=== PATIENT | female | born 1980 | race Caucasian/White ===

== ENCOUNTER → 2018-01-24 10:07 | Outpatient (CLI) | payer OTHER, SELFPAY ==
--- NOTE | 2018-01-24 10:09 | MM_ITS ---
MM Dig screening mamm BI w/CAD ORDERING PHYSICIAN : Gwen Samson PATIENT AGE: 37 years GENDER: Female COMPARISON: None Baseline mammogram INDICATION: ITS.REASON: breast pain mirena Family history:. Maternal grandmother with breast cancer in her 70s. Maternal first cousin breast cancer age 25 TECHNIQUE: Standard CC and MLO images were obtained. R2 CAD reviewed. FINDINGS: Moderately dense breast tissue most evident towards upper-outer quadrant right and left breast. Mild/moderate asymmetry at upper-outer quadrant left versus right breast.. CAD computer review highlights no areas of concern. RIGHT BREAST:No areas of concern follow-up in one year adequate LEFT BREAST:The denser tissue at the deep lateral left breast on cc view seems to dissipate on MLO view and I believe most likely reflects asymmetric fibroglandular tissue most likely. . The asymmetry is fairly pronounced here in this would suggest a follow-up left mammogram 4-6 months to further confirm stability IMPRESSION: Asymmetric moderately dense breast . Asymmetric area of I believe fibroglandular tissue upper-outer quadrant left breast, which seems to dissipate on the MLO view . However suggest a follow-up left mammogram in 4-6 months to confirm stable baseline character here. BI-RADS Category: 3 Probably Benign Finding Short Term Follow-up RECOMMENDED FOLLOW-UP: 6M 6 MONTH FOLLOW-UP (A letter has been sent to the patient regarding results of the study.)
== END ==
PROVIDERS: PCP Nurse Practitioner Family; Visit Provider Nurse Practitioner Family
DX: N64.4 Mastodynia (principal); Z12.31 Encounter for screening mammogram for malignant neoplasm of breast
CPT/HCPCS: 77067

== ENCOUNTER → 2018-10-31 13:03 | Outpatient (CLI) | payer OTHER, SELFPAY ==
--- NOTE | 2018-10-31 | US_ITS ---
MM Dig mamm DX unilat LT CAD, US breast LT complete INDICATION: Follow-up abnormal mammogram, asymmetric density ORDERING PHYSICIAN: REGULO Blanco PATIENT AGE: 38 years COMPARISON: 01/24/2018 TECHNIQUE: Standard images performed along with spot compression views and left breast ultrasound FINDINGS: Average to dense fibroglandular tissue. Asymmetric areas of increased density are present in the outer and medial aspect of the left breast as well as the upper and central aspect of the left breast. These areas appear similar compared to the previous exam. There appear to compress out as expected for fibroglandular tissue. No malignant appearing microcalcifications. There is some minimal nodularity noted in the inferior aspect of the left breast on the MLO view which may be due to an area of asymmetric tissue. Left breast ultrasound: There is a 4 mm cyst at 6:00 possibly representing asymmetric density in the inferior aspect of the left breast. No malignant appearing masses IMPRESSION: Probably benign findings, scattered areas of asymmetry as described above. Recommend follow-up December 2018 to put the patient back on schedule BI-RADS Category: 3 Probably Benign Finding Short Term Follow-up RECOMMENDED FOLLOW-UP: 3M - 3 MONTH FOLLOWUP (A letter has been sent to the patient regarding results of the study.)
== END ==
PROVIDERS: PCP Physician Assistant; Visit Provider Physician Assistant
DX: R92.8 Other abnormal and inconclusive findings on diagnostic imaging of breast (principal)
CPT/HCPCS: 76641; 77065

== ENCOUNTER → 2019-01-23 16:16 | Outpatient (CLI) | payer OTHER, SELFPAY ==
[2019-01-23 17:27] LABS: Basophils # 0.1 K/mm3 (0-0.2); Basophils % 0.7 % (0.1-2.0); Eosinophils # 0.3 K/mm3 (0.0-0.4); Eosinophils % 3.4 % (0.1-12.0); Hemoglobin 13.6 g/dL (12.2-16.2); Lymphocytes # 2.8 K/mm3 (0.7-4.5); Lymphocytes % 34.1 % (10-50); Mean Corpuscular HGB Conc 33.3 g/dL (31.8-35.4); Mean Corpuscular Hemoglobin 31.5 pg (27.0-31.2); Mean Corpuscular Volume 94.6 fl (81-99); Mean Platelet Volume 8.4 fl (7.4-10.4); Monocytes # 0.3 K/mm3 (0.1-1.0); Monocytes % 3.9 % (1.7-9.3); Neutrophils # 4.8 K/mm3 (1.8-7.8); Neutrophils % 57.9 % (37.0-80.0); Platelet Count 245 K/mm3 (142-424); Red Blood Count 4.33 M/mm3 (4.20-5.40); Red Cell Distribution Width 12.6 % (11.5-17.5); White Blood Count 8.3 K/mm3 (4.8-10.8)
[2019-01-23 19:01] LABS: Alanine Aminotransferase 14 U/L (12-78); Albumin/Globulin Ratio 1.4 (1.1-1.8); Alkaline Phosphatase 42 U/L (46-116); Anion Gap 10.8 mEq/L (5-15); Aspartate Amino Transferase 12 U/L (15-37); Bilirubin,Total 0.3 mg/dL (0.2-1.0); Blood Urea Nitrogen 10 mg/dL (7-18); Calcium 9.4 mg/dL (8.5-10.1); Carbon Dioxide 29 mmol/L (21.0-32.0); Chloride 104 mmol/L (98-107); Creatinine,Serum 0.65 mg/dL (0.55-1.02); Estimated Glomerular Filt Rate 101 ml/min (>60); Free T4 (Free Thyroxine) 0.94 ng/dl (0.76-1.46); GFR (African American) 122 ML/MIN (>60); Globulin 2.8 gm/dl (1.3-3.2); Glucose 86 mg/dL (74-106); Potassium 3.8 mmoL/L (3.5-5.1); Sodium 140 mmol/L (136-145); Thyroid Stimulating Hormone 1.69 uIU/ml (0.358-3.740); Total Protein,Serum 6.8 gm/dL (6.4-8.2)
[2019-01-25 08:13] LABS: Iron 54 ug/dL (27-159); UIBC 184 ug/dL (131-425)
[2019-01-25 08:18] LABS: Iron Saturation 23 % (15-55); Vitamin B12 298 pg/mL (232-1245); Vitamin D 25 Hydroxy 19.9 ng/mL (30.0-100.0)
[2019-01-25 14:56] LABS: FSH 19.3 mIU/mL (.)
[2019-01-29 09:22] LABS: Estrogen 75 pg/mL (.)
== END ==
PROVIDERS: Visit Provider Nurse Practitioner Psychiatric/Mental Health
DX: Z00.00 Encounter for general adult medical examination without abnormal findings (principal); Z79.899 Other long term (current) drug therapy; R53.83 Other fatigue; E55.9 Vitamin D deficiency, unspecified
CPT/HCPCS: 36415; 80053; 82607; 82652; 82672; 83001; 83036; 83540; 83550; 84439; 84443; 85025

== ENCOUNTER → 2019-04-24 08:19 | Outpatient (CLI) | payer OTHER, SELFPAY ==
--- NOTE | 2019-04-24 08:20 | CA_ITS ---
APPROVED REPORT EXAM: Comprehensive 2D, Doppler, and color-flow Echocardiogram Math Instructor: Leona Abraham RT(R) Ht: 5 ft 0 in Wt: 146lbs BSA: 1.63 BP: 105/72 mmHg Indications: SOA, ABN EKG, syncope, cp, smoker, palpitations. 2D Dimensions LVOT 1.72 cm (M/F) 1.5-2.5 M-Mode Dimensions RVDd 1.88 cm (0.9-2.6) LVDd 4.61 cm (3.5-5.7) LVDs 3.55 cm (3.5-5.7) IVSd 0.66 cm (0.6-1.1) PWd 0.60 cm (0.6-1.1) EF (Teich) 46.20% FS 23.00% EDV (Teich) 97.80 mL ESV (Teich) 52.60 mL LV Diastology E/A Ratio 1.22 Mitral Valve MV A Velocity 74.00 (40-130 cm/s) Left Ventricle Left atrium is normal size, left ventricle is normal size, there is no concentric left ventricular hypertrophy, visually estimated ejection fraction 55% with no regional wall motion abnormality. Right Ventricle Right atrium and right ventricular normal size and contractility. Aortic Valve Aortic valve is grossly normal, there is no aortic stenosis or aortic insufficiency. Mitral Valve Mitral valve is grossly normal, there is no mitral stenosis, there is mild mitral regurgitation. Tricuspid Valve Tricuspid valve is grossly normal, there is mild tricuspid regurgitation. Tricuspid regurgitation jet velocity is inadequate for calculation of the right ventricular systolic pressure. Pulmonic Valve Pulmonic valve is poorly visualized. Great Vessels Aortic root is normal size. Pericardium No significant pericardial effusion noted. Conclusion 1. Normal left ventricular size, preserved left ventricular systolic function, visually estimated ejection fraction 55% with no regional wall motion abnormality, diastolic parameters are within normal range. 2. Mild mitral and tricuspid regurgitation. 3. No significant pericardial effusion noted. Electronically signed by : Syed Junior, 04/25/2019 14:41:05
--- NOTE | 2019-04-24 08:20 | CA_ITS ---
APPROVED REPORT Exam: Exercise Treadmill Technologist: Deborah Odell Ht: 5 ft 0 in Wt: 157 lbs BSA: 1.68 m2 HR: 92 bpm BP: 116/59 mmHg Indications: Shortness of Breath Medical History Medications: Prozac,,,,, Suboxine,,,,, Stress Test Details Test: Alen HR Resting HR: 98 bpm Max Heart Rate (APMHR): 180 bpm Max HR Achieved: 158 bpm Target HR (85% APMHR): 153 bpm % of APMHR: 87 Recovery HR: 93 bpm BP Resting BP: 116.0/59.0 mmHg Max BP: 134.0/86.0 mmHg Recovery BP: 129.0/69.0 mmHg ECG Clinical Exercise duration: 06:40 min Highest Stage Achieved: Exercise capacity: 7.0 METs Stress ECG Conclusion Resting ECG: Sinus Rhythm with PVC Alen protocol completed. Patient exercised 06:40. Test stopped due to shortness of breath. Symptoms: Shortness of breath at peak exercise. Resolved in recovery. No chest pain. Arrhythmias/Ectopy: Occasional PVC ST-T Changes: Less than 1.[address] depression. Conclusion: GXT only. Appropriate blood pressure response. Average exercise capacity. Normal GXT. Test Summary REST . . . . . . . Sitting REST 09:03 0.0 0.0 98 . 116/ 59 . . Stage 1 01:00 10.0 1.7 108 . . . . Stage 1 02:00 10.0 1.7 120 . . . . Stage 1 03:00 10.0 1.7 126 . 114/ 66 . . Stage 2 01:00 12.0 2.5 131 . . . . Stage 2 02:00 12.0 2.5 141 . . . . Stage 2 03:00 12.0 2.5 146 . 122/ 68 . . Stage 3 00:40 14.0 3.4 157 . . . Stop exercise at 06:40 RECOVERY 01:00 0.0 0.0 130 . 128/ 68 . . RECOVERY 02:00 0.0 0.0 108 . 128/ 68 . . RECOVERY 03:00 0.0 0.0 100 . 134/ 86 . . RECOVERY 04:00 0.0 0.0 93 . 134/ 86 . . RECOVERY 04:21 0.0 0.0 97 . 129/ 69 . . Electronically signed by : Syed Junior, 04/25/2019 16:00:04
== END ==
PROVIDERS: PCP Physician Assistant; Visit Provider Nurse Practitioner Family
DX: R06.02 Shortness of breath (principal); R07.9 Chest pain, unspecified; R94.31 Abnormal electrocardiogram [ECG] [EKG]
CPT/HCPCS: 93017; 93306

== ENCOUNTER 2020-10-24 13:25 | Emergency (ER) | payer OTHER, SELFPAY ==
[2020-10-24 13:51] VITALS: BP 133/84; PULSE 91; RESP 20; TEMP 36.9; O2SAT 98; BMI 29.7
--- NOTE | 2020-10-24 13:58 | XR_ITS ---
PROCEDURE INFORMATION: Exam: XR Right Foot Exam date and time: 10/24/2020 1:58 PM Age: 40 years old Clinical indication: Pain; Foot; Right TECHNIQUE: Imaging protocol: XR Right foot. Views: 3 or more views. COMPARISON: No relevant prior studies available. FINDINGS: Bones/joints: There is no evidence of acute fracture. There is no evidence of joint malalignment or dislocation. Soft tissues: There are no soft tissue masses or fluid collections. IMPRESSION: 1. No evidence of acute fracture. 2. No evidence of acute dislocation.
--- NOTE | 2020-10-24 13:58 | XR_ITS ---
PROCEDURE INFORMATION: Exam: XR Left Knee Exam date and time: 10/24/2020 1:58 PM Age: 40 years old Clinical indication: Pain; Knee; Left TECHNIQUE: Imaging protocol: XR Left knee. Views: 3 views. COMPARISON: CR FTL3 FOOT-LT-3 VIEWS 05/28/2014 9:41 PM FINDINGS: Bones/joints: There is no evidence of acute fracture. There is no evidence of joint malalignment or dislocation. Soft tissues: There are no soft tissue masses or fluid collections. IMPRESSION: 1. No evidence of acute fracture. 2. No evidence of acute dislocation.
--- NOTE | 2020-10-24 14:56 | HMH.EDUTC ---
[facility] [place] Clinical Impression: Right foot pain Left knee pain Qualifiers: Chronicity: acute Qualified Code(s): M25.562 - Pain in left knee Disposition: Home, Self-Care Condition on Discharge: Good Instructions: DI for Foot Pain, DI for Knee Pain Additional Instructions: Rest the extremity, apply ice for 15 minutes as tolerated three or four times per day, Elevate the extremity as tolerated while you are resting. Take the medications as directed. Follow up with Dr. Bill (orthopedics). I put in a referral but you need to call his office and schedule an appointment. Follow up with your regular doctor. GO TO THE ER FOR ANY WORSENING SYMPTOMS Prescriptions: predniSONE [Prednisone 20mg Tab] 20 mg PO BID 4 Days #8 tab Transmission Status: Received by [id number] Referrals: Garfield Dasilva MD [Primary Care Provider] - Jann Bill MD [Staff Physician] - Time of Disposition: 15:02 Medical Decision Making - Medical Records Medical records reviewed: No: I reviewed the patient's medical records. - Dipesh Inquiry Pt receiving controlled substance: No Vital Signs: 10/24/20 13:51 10/24/20 15:23 Temperature 98.5 F 98 F Temperature Source Oral Pulse Rate 83 Pulse Rate [Left] 91 H Respiratory Rate 20 20 Blood Pressure 127/80 Blood Pressure [Right Arm] 133/84 Blood Pressure Mean [Right Arm] 100 02 Sat by Pulse Oximetry 98 [facility] [place] - General Stated complaint: Lt knee pain, no ao Time Seen by Provider: 10/24/20 14:00 Mode of Arrival: Ambulatory Source of Information: Patient Limitations: No Limitations Description of Symptoms (Recalled from Triage Doc. by RN): pt c/o of L knee swelling and pain 11/03. pt also c/o pain on her R foot along the inside of it that palmer and spasms. She states this occurs off and on and lasts about 5m out of an hr. pt states she thinks its gout. no hx of gout. HEENT Symptoms (Recalled from RN notes): No Resp Symptoms (Recalled from RN notes): No Skin Symptoms (Recalled from RN notes): No MS Symptoms (Recalled from RN notes): Yes (L knee pain and R foot pain) Functional Status (Recalled from RN notes): na - History of Present Illness Provider Complaint: She c/o 2 days of worsening left knee pain. She denies any injury. She states that bending her knee makes the pain worse. She states that it has been swollen also. She also has had right foot pain for the past week. She denies any injury related to that also. - Related Data Home Medications Medication Instructions Recorded Confirmed buprenorphine 8 mg-naloxone 2 mg 1 film SUBLINGUAL QDAY 04/19/17 04/23/20 sublingual film Previous Rx's Medication Instructions Recorded omeprazole 40 mg capsule,delayed 40 mg PO QDAY #30 cap 04/24/20 release predniSONE [Prednisone 20mg 20 mg PO BID 4 Days #8 tab 10/24/20 Tab] Allergies Allergy/AdvReac Type Severity Reaction Status Date / Time codeine [CODEINE] Allergy Unknown Verified 04/24/20 09:08 Penicillins [PENICILLINS] Allergy Unknown NA-NAUSEA/V Verified 04/24/20 09:08 OMITING Sulfa (Sulfonamide Allergy Unknown NA-NAUSEA/V Verified 04/24/20 09:08 Antibiotics) OMITING [SULFA (SULFONAMIDE ANTIBIOTICS)] - Worker's Comp Is this a Worker's Comp case?: No [facility] History - Hepatitis A Screen Drug use history?: No High risk sexual behaviors?: No History of sexually transmitted infection?: No Currently employed?: No Childcare worker?: No Do you have indoor plumbing?: Yes Do you have electricity?: Yes Attestation statement:: This patient has been screened for Hepatitis A risk factors. I have reviewed the patient's past medical history: Yes Medical History: Reports:: Anxiety, Depression, Gastroesophageal Reflux Disease(GERD) Denies:: Cancer, Diabetes Mellitus Type 1, Diabetes Mellitus Type 2, MRSA Other Surgeries: Yes: Cholecystectomy, Other Amputation: No Fractures: Yes (LEFT PINKY FINGER
[2020-10-24 15:23] VITALS: BP 127/80; PULSE 83; RESP 20; TEMP 36.6
== END 2020-10-24 15:23 | disposition home or self-care (01) ==
PROVIDERS: Emergency Provider Nurse Practitioner Family; PCP Emergency Medicine
DX: M79.671 Pain in right foot (principal); M25.562 Pain in left knee; F41.8 Other specified anxiety disorders; K21.9 Gastro-esophageal reflux disease without esophagitis; F17.210 Nicotine dependence, cigarettes, uncomplicated; Z79.899 Other long term (current) drug therapy
CPT/HCPCS: 73562; 73630; 99202; G0463

== ENCOUNTER → 2020-12-09 15:49 | Outpatient (CLI) | payer OTHER, SELFPAY ==
[2020-12-09 16:40] LABS: Basophils # 0.1 K/mm3 (0-0.2); Basophils % 0.6 % (0.1-2.0); Eosinophils # 0.3 K/mm3 (0.0-0.4); Eosinophils % 2.4 % (0.1-12.0); Hematocrit 41.6 % (37.0-47.0); Lymphocytes # 3.1 K/mm3 (0.7-4.5); Lymphocytes % 29.5 % (10-50); Mean Corpuscular HGB Conc 33.6 g/dL (31.8-35.4); Mean Corpuscular Hemoglobin 31.4 pg (27.0-31.2); Mean Corpuscular Volume 93.2 fl (81-99); Mean Platelet Volume 7.8 fl (7.4-10.4); Monocytes # 0.4 K/mm3 (0.1-1.0); Monocytes % 3.8 % (1.7-9.3); Neutrophils # 6.6 K/mm3 (1.8-7.8); Neutrophils % 63.7 % (37.0-80.0); Platelet Count 241 K/mm3 (142-424); Red Blood Count 4.47 M/mm3 (4.20-5.40); Red Cell Distribution Width 12.1 % (11.5-17.5); White Blood Count 10.4 K/mm3 (4.8-10.8)
[2020-12-09 17:22] LABS: Erythrocyte Sedimentation Rate 9 mm/hr (0-20)
[2020-12-09 17:35] LABS: Alanine Aminotransferase 15 U/L (12-78); Albumin Level 4.4 g/dl (3.5-5.0); Alkaline Phosphatase 41 U/L (38-126); Aspartate Amino Transferase 20 U/L (14-36); Bilirubin,Indirect 0.2 mg/dL (0.0-0.9); Bilirubin,Total 0.2 mg/dl (0.2-1.3); Bilirubin,Unconjugated 0.2 mg/dL (0.0-1.1); Chol/HDL Ratio 4.6 (1-3.5); Cholesterol 201 mg/dl (140-200); HDL Cholesterol 44 mg/dl (40-60); Total Protein,Serum 6.8 g/dl (6.3-8.2); Triglycerides 231 mg/dl (30-150); VLDL Cholesterol 46 mg/dL (0-40)
[2020-12-09 17:36] LABS: Alanine Aminotransferase 16 U/L (12-78); Albumin Level 4.4 g/dl (3.5-5.0); Albumin/Globulin Ratio 1.8 (1.1-1.8); Alkaline Phosphatase 41 U/L (38-126); Aspartate Amino Transferase 20 U/L (14-36); Bilirubin,Total 0.3 mg/dl (0.2-1.3); Blood Urea Nitrogen 9 mg/dl (7-17); Calcium 9.5 mg/dl (8.4-10.2); Carbon Dioxide 27 mmol/L (22.0-30.0); Chloride 102 mmol/L (98-107); Estimated Glomerular Filt Rate 92 ml/min (>60); GFR (African American) 111 ML/MIN (>60); Globulin 2.4 g/dL (1.3-3.2); Glucose 103 mg/dl (74-100); Sodium 141 mmol/L (136-145); Total Protein,Serum 6.8 g/dl (6.3-8.2); Uric Acid 4.2 mg/dl (2.5-6.2)
[2020-12-09 17:41] LABS: C-Reactive Protein 0.9 mg/L (0-4)
[2020-12-09 17:46] LABS: Direct LDL Cholesterol 106.75 mg/dL (100-129)
[2020-12-09 17:52] LABS: Free T4 (Free Thyroxine) 0.94 ng/dl (0.78-2.19)
[2020-12-09 18:07] LABS: Thyroid Stimulating Hormone 2.21 uIU/mL (0.465-4.68)
== END ==
PROVIDERS: Physician Assistant; Visit Provider Physician Assistant
DX: R06.02 Shortness of breath (principal); R07.89 Other chest pain; M79.671 Pain in right foot; R35.0 Frequency of micturition; B96.20 Unspecified Escherichia coli [E. coli] as the cause of diseases classified elsewhere
CPT/HCPCS: 36415; 80053; 80061; 80076; 84439; 84443; 84550; 85025; 85651; 86140; 87086; 87088; 87186

== ENCOUNTER 2020-12-20 09:46 | Emergency (ER) | payer OTHER, SELFPAY ==
[2020-12-20 09:50] VITALS: BP 108/80; PULSE 97; RESP 20; TEMP 37.1; O2SAT 98; BMI 30.4
[2020-12-20 10:20] LABS: Apearance,Urine Cloudy (Clear); Bilirubin,Urine Negative (Negative); Blood, Urine Negative (Negative); Color,Urine Dark Yellow (Yellow); Glucose,Urine (UA) Negative (Negative); Ketones,Urine Negative (Negative); PH,Urine 7.5 (5.0-8.5); Protein,Urine Negative (Negative); UTC Leukocyte Esterase,Urine 1+ (Negative); UTC Nitrate,Urine Negative (Negative); Urobilinogen,Urine 0.2 EU/dl (0.2)
--- NOTE | 2020-12-20 10:36 | HMH.EDUTC ---
[facility] – [place], [place] Disposition Clinical Impression: UTI (urinary tract infection) Qualifiers: Urinary tract infection type: site unspecified Hematuria presence: with hematuria Qualified Code(s): N39.0 - Urinary tract infection, site not specified Disposition: Home, Self-Care Condition on Discharge: Good Instructions: DI for Urinary Tract Infection (UTI) Additional Instructions: Drink plenty of fluids. Take tylenol or ibuprofen for pain or fever. Take the medications as directed. Follow up with your regular doctor. GO TO THE ER FOR ANY WORSENING SYMPTOMS The pyridium will make your urine turn orange, this is an expected side effect. It will stain your clothes if it comes into contact with them. Don't take the Azo you are on at home and the pyridium that we prescribed. These are essentially the same medicines and both together would not be necessary and could cause you GI upset and other stuff. Stop the antbiotic that you are on now. Start the new one (cefdinir). Follow up with Khalida. We cultured your urine today, but that will take 3 days to complete. I put in a referral to a urologist that comes to this hospital. Please call Dr. Coffey's office and make yourself an appointment. Even if you're getting better it would be good for you to be seen there because you've had this much trouble with this infection this time. His office number will be on this paperwork. Prescriptions: Cefdinir [Omnicef 300mg Capsule] 300 mg PO BID #20 cap Transmission Status: Re[facility] by [facility] Phenazopyridine HCl [Pyridium 200mg Tablet] 200 pow PO TID #6 tab Transmission Status: Received by [facility] Ondansetron [Zofran 4mg ODT] 4 mg PO DAILYP PRN #12 tab PRN Reason: Nausea Transmission Status: Received by [facility] Referrals: Khalida Moran PA [Primary Care Provider] - Aldo Coffey MD [Staff Physician] - Forms: Work/School Release Time of Disposition: 10:44 Medical Decision Making - Medical Records Medical records reviewed: No: I reviewed the patient's medical records. - Dipesh Inquiry Pt receiving controlled substance: No Vital Signs: 12/20/20 09:50 12/20/20 10:50 Temperature 98.7 F 98.7 F Temperature Source Oral Pulse Rate 97 H Pulse Rate [Right Brachial] 97 H Respiratory Rate 20 20 Blood Pressure 108/80 L Blood Pressure [Right Arm] 108/80 L Blood Pressure Mean [Right Arm] 89 Blood Pressure Source [Right Arm] Automatic Cuff Blood Pressure Position [Right Arm] Sitting 02 Sat by Pulse Oximetry 98 Oxygen Delivery Method Room Air - Lab Data Lab results reviewed: Yes: I reviewed the patient's lab results. Lab Results 12/20/20 10:14: Urine Color Dark yellow, Urine Appearance Cloudy, Urine pH 7.5, Ur Specific [place] 1.020, Urine Protein Negative, Urine Glucose (UA) Negative, Urine Ketones Negative, Urine Blood Negative, Urine Nitrate Negative, Urine Bilirubin Negative, Urine Urobilinogen 0.2, Ur Leukocyte Esterase 1+ A Orders (Tests/Meds): ED MEDICATIONS Discontinued Medications Generic Name Dose Route Start Last Admin Trade Name Freq PRN Reason Stop Dose Admin Ceftriaxone Sodium 1 gm 12/20/20 10:40 12/20/20 10:45 Ceftriaxone 1gm Vial IM 12/20/20 10:41 1 gm ONCE ONE Administration Lidocaine HCl 0 ml 12/20/20 10:40 12/20/20 10:45 Lidocaine 1% 5ml Pf Vial IM 12/20/20 10:41 2.1 ml ONCE ONE Administration ORDERS Category Date Time Status Urine Culture Stat Micro 12/20/20 09:57 Received [facility] – [place], [place] HPI - General Stated complaint: possible kidney infection Time Seen by Provider: 12/20/20 10:36 Mode of Arrival: Ambulatory Source of Information: Patient Limitations: No Limitations Description of Symptoms (Recalled from Triage Doc. by RN): PATIENT STATES SHE HAS HAD A UTI X 3 WEEKS. STATES SHE HAS BEEN TREATED WITH 2 ROUNDS OF ANTIBIOTICS BUT IS NOT BETTER HEENT Symptoms (Recalled fro
[2020-12-20 10:50] VITALS: BP 108/80; PULSE 97; RESP 20; TEMP 37.1; O2SAT 98
== END 2020-12-20 10:56 | disposition home or self-care (01) ==
PROVIDERS: Emergency Provider Nurse Practitioner Family; PCP Physician Assistant
DX: N39.0 Urinary tract infection, site not specified (principal); Z88.0 Allergy status to penicillin; Z88.6 Allergy status to analgesic agent; Z88.2 Allergy status to sulfonamides; Z72.0 Tobacco use; F41.9 Anxiety disorder, unspecified; F32.9 Major depressive disorder, single episode, unspecified; K21.9 Gastro-esophageal reflux disease without esophagitis; F11.11 Opioid abuse, in remission
CPT/HCPCS: 81003; 87086; 96372; 99202; G0463

== ENCOUNTER → 2021-04-16 17:50 | Outpatient (CLI) | payer OTHER, SELFPAY | PROVIDERS: Visit Provider Nurse Practitioner Family | DX: N39.0 Urinary tract infection, site not specified (principal); B96.20 Unspecified Escherichia coli [E. coli] as the cause of diseases classified elsewhere | CPT/HCPCS: 87086; 87088; 87186 ==

== ENCOUNTER → 2021-08-26 14:23 | Outpatient (CLI) | payer OTHER, SELFPAY ==
[2021-08-26 13:34] LABS: Basophils # 0.2 K/mm3 (0-0.2); Basophils % 1.5 % (0.1-2.0); Eosinophils # 0.3 K/mm3 (0.0-0.4); Eosinophils % 3.1 % (0.1-12.0); Hematocrit 40.1 % (37.0-47.0); Hemoglobin 13.7 g/dL (12.2-16.2); Lymphocytes # 2.3 K/mm3 (0.7-4.5); Lymphocytes % 23.4 % (10-50); Mean Corpuscular HGB Conc 34.2 g/dL (31.8-35.4); Mean Corpuscular Hemoglobin 32.4 pg (27.0-31.2); Mean Corpuscular Volume 94.9 fl (81-99); Mean Platelet Volume 9.6 fl (7.4-10.4); Monocytes # 0.4 K/mm3 (0.1-1.0); Monocytes % 3.6 % (1.7-9.3); Neutrophils # 6.6 K/mm3 (1.8-7.8); Neutrophils % 68.3 % (37.0-80.0); Platelet Count 254 K/mm3 (142-424); Red Blood Count 4.23 M/mm3 (4.20-5.40); Red Cell Distribution Width 13.1 % (11.5-17.5); White Blood Count 9.7 K/mm3 (4.8-10.8)
[2021-08-26 13:35] LABS: Alanine Aminotransferase 15 U/L (12-78); Albumin/Globulin Ratio 1.7 (1.1-1.8); Alkaline Phosphatase 56 U/L (38-126); Anion Gap 8.2 mEq/L (5-15); Aspartate Amino Transferase 23 U/L (14-36); Blood Urea Nitrogen 8 mg/dl (7-17); Calcium 8.8 mg/dl (8.4-10.2); Carbon Dioxide 25 mmol/L (22.0-30.0); Chloride 108 mmol/L (98-107); Chol/HDL Ratio 5.3 (1-3.5); Cholesterol 165 mg/dl (140-200); Estimated Glomerular Filt Rate 110 ml/min (>60); GFR (African American) 133 ML/MIN (>60); Globulin 2.3 g/dL (1.3-3.2); Glucose 107 mg/dl (74-100); HDL Cholesterol 31 mg/dl (40-60); Magnesium 1.9 mg/dl (1.6-2.3); Potassium 4.2 mmoL/L (3.5-5.1); Sodium 137 mmol/L (136-145); Total Protein,Serum 6.3 g/dl (6.3-8.2); Triglycerides 245 mg/dl (30-150); VLDL Cholesterol 49 mg/dL (0-40)
[2021-08-26 13:46] LABS: Direct LDL Cholesterol 80.83 mg/dL (100-129)
[2021-08-26 13:47] LABS: Bilirubin,Total < 0.1 mg/dl (0.2-1.3)
[2021-08-26 13:53] LABS: 25-OH Vitamin D, Total 27.4 ng/mL (30-100)
[2021-08-26 14:06] LABS: Thyroid Stimulating Hormone 2.29 uIU/mL (0.465-4.68)
[2021-08-26 14:25] LABS: Vitamin B12 332 pg/mL (239-931)
[2021-08-26 15:40] LABS: Ferritin 61.9 ng/ml (6.24-137)
[2021-08-26 16:04] LABS: Hemoglobin A1C 5.2 % (4.0-6.0)
== END ==
PROVIDERS: PCP Physician Assistant; Visit Provider Physician Assistant
DX: R09.89 Other specified symptoms and signs involving the circulatory and respiratory systems (principal); R53.83 Other fatigue; M62.838 Other muscle spasm; M79.606 Pain in leg, unspecified; R73.09 Other abnormal glucose; E55.9 Vitamin D deficiency, unspecified
CPT/HCPCS: 80053; 80061; 82306; 82607; 82728; 83036; 83735; 84443; 85025

== ENCOUNTER → 2021-09-15 09:29 | Outpatient (CLI) | payer OTHER, SELFPAY ==
--- NOTE | 2021-09-15 09:30 | CA_ITS ---
APPROVED REPORT Exam: Exercise Treadmill Technologist: Kasandra Aleman, Ht: 5 ft 0 in Wt: 163 lbs BSA: 1.71 m2 HR: 69 bpm BP: 124/70 mmHg Medical History Medications: Suboxone,,,,, Prozac,,,,, Stress Test Details Test: Alen HR Resting HR: 72 bpm Max Heart Rate (APMHR): 178.510630 bpm Max HR Achieved: 147 bpm Target HR (85% APMHR): 151.432260 bpm % of APMHR: 82.58 Recovery HR: 75 bpm BP Resting BP: 119/71 mmHg Max BP: 144/76 mmHg Recovery BP: 118.0/72.0 mmHg ECG Resting ECG: NSR, normal Clinical Exercise duration: 06:52 min Highest Stage Achieved: III Exercise capacity: 10.1 METs Stress ECG Conclusion Max HR: 147 % of PM: 83% Max BP: 144/76 METs: 10.1 Test stopped due to: SOA, Fatigue Symptoms: SOA, No CP. Arrhythmias/Ectopy: Rare PVC. ST-T Changes: Within normal ST response to exercise. Conclusion: Normal GXT to HR achieved. GXT only (no imaging) Test Summary REST . . . . . . . Sitting REST . . . . . . . Standing REST 03:05 0.0 0.0 72 . 119/ 71 . . Stage 1 01:00 10.0 1.7 106 . . . . Stage 1 02:00 10.0 1.7 117 . . . . Stage 1 03:00 10.0 1.7 113 . 126/ 78 . . Stage 2 01:00 12.0 2.5 128 . . . . Stage 2 02:00 12.0 2.5 132 . . . . Stage 2 03:00 12.0 2.5 131 . 144/ 76 . . Stage 3 00:52 14.0 3.4 146 . . . Stop exercise at 06:52 RECOVERY 01:00 0.0 0.0 104 . . . . RECOVERY 02:00 0.0 0.0 83 . . . . RECOVERY 03:00 0.0 0.0 80 . 123/ 72 . . RECOVERY 04:00 0.0 0.0 80 . 123/ 72 . . RECOVERY 05:00 0.0 0.0 78 . 118/ 72 . . RECOVERY 05:16 0.0 0.0 78 . 118/ 72 . . Electronically signed by : Leonardo Bartlett MD 09/15/2021 14:39:50
--- NOTE | 2021-09-15 09:30 | CA_ITS ---
APPROVED REPORT EXAM: Comprehensive 2D, Doppler, and color-flow Echocardiogram Expenditure Requisition Clerk: Jocelynn Grimaldo, RCS, RVS Ht: 5 ft 0 in Wt: 163lbs BSA: 1.71 BP: 120/78 mmHg Indications: CP,GERD, Smoker 2D Dimensions Aortic Root 2.57 cm LA Volume 57.60 mL Left Atrium 2.33 cm LA Volume Index 33.70 mL/m2 (M/F) 16-34 LVOT 2.02 cm (M/F) 1.5-2.5 M-Mode Dimensions RVDd 2.11 cm (0.9-2.6) LA Diam 2.46 cm (1.9-4.0) LVDd 4.70 cm (3.5-5.7) Ao Diam 2.66 cm (2.0-3.7) LVDs 3.39 cm (3.5-5.7) IVSd 0.84 cm (0.6-1.1) PWd 0.87 cm (0.6-1.1) EF (Teich) 54.00% EPSs 0.47 cm FS 27.90% EDV (Teich) 102.40 mL TAPSE 2.26 (<1.7) ESV (Teich) 47.10 mL LV Diastology E Decel Time 173.00 (160-240 msec) E/A Ratio 1.28 MED E' 13.30 (< 7 cm/sec) MED A' 10.30 cm/s E'/MED E' Ratio 6.62 (>14) LAT E' 9.70 (<10 cm/sec) LAT A' 8.40 cm/s E/LAT E' Ratio 9.07 (>14) Aortic Valve LVOT Max 97.00 (70-110 cm/s) LVOT VTI 21.27 cm AoV Peak Berto. 124.00 (50-130 cm/s) AO Peak GR. 6.20 mmHg AO Mean GR. 3.20 (<5 mmHg) AO VTI 26.87 (18-25 cm) JAMEL (VTI) 2.54 (2.5-4.5 cm2) Mitral Valve MV A Velocity 69.00 (40-130 cm/s) E/A Ratio 1.28 MV Decel. Time 173.00 (160-240 ms) MV Mean Gr. 1.40 (<2mmHg) MV PHT 50.00 ms Pulmonary Valve PV Peak Velocity 82.00 (50-150 cm/s) Tricuspid Valve TR P. Velocity 213.00 cm/s RAP Estimate 5.00 mmHg RVSP 23.20 mmHg Left Ventricle Minimal size, left ventricle normal size, there is no concentric left ventricular hypertrophy, estimated ejection fraction 55% with no regional wall motion abnormality, diastolic parameters are within normal range. Right Ventricle Right atrium and right ventricle are normal size and contractility. Aortic Valve Aortic valve is grossly normal there is no aortic stenosis or aortic insufficiency. Mitral Valve Mitral valve is grossly normal, there is trace mitral regurgitation. Tricuspid Valve Tricuspid grossly normal, there is trace tricuspid regurgitation, tricuspid regurgitation jet velocity is inadequate for calculation of the right ventricular systolic pressure. Pulmonic Valve Pulmonic valve is poorly visualized. Great Vessels Aortic root is normal size. Inferior vena cava normal 7 normal inspiratory collapse. Pericardium No significant pericardial effusion noted. Conclusion 1. Normal left ventricular size preserved left ventricular systolic function, estimated ejection fraction 55% with no regional wall motion abnormality, diastolic parameters are within normal range. 2. Trace mitral and tricuspid regurgitation. 3. No significant pericardial effusion noted. 4. Inferior vena cava normal size with normal inspiratory collapse. Electronically signed by : Syed Junior MD 09/15/2021 19:22:18
== END ==
PROVIDERS: PCP Physician Assistant; Visit Provider Physician Assistant
DX: R07.9 Chest pain, unspecified (principal)
CPT/HCPCS: 93017; 93306

== ENCOUNTER 2021-12-19 11:18 | Emergency (ER) | payer OTHER, SELFPAY ==
[2021-12-19 11:19] VITALS: BP 161/80; PULSE 82; RESP 18; TEMP 36.8; O2SAT 100; BMI 30.7
[2021-12-19 11:30] VITALS: BP 151/107; PULSE 81; RESP 20; O2SAT 100
[2021-12-19 12:00] VITALS: BP 125/85; PULSE 95; RESP 20; O2SAT 98
[2021-12-19 12:01] LABS: Basophils # 0.1 K/mm3 (0-0.2); Basophils % 1.2 % (0.1-2.0); Eosinophils # 0.3 K/mm3 (0.0-0.4); Eosinophils % 2.9 % (0.1-12.0); Hematocrit 44.1 % (37.0-47.0); Hemoglobin 14.1 g/dL (12.2-16.2); Lymphocytes # 2.1 K/mm3 (0.7-4.5); Lymphocytes % 21.8 % (10-50); Mean Corpuscular Hemoglobin 31.4 pg (27.0-31.2); Mean Corpuscular Volume 98.1 fl (81-99); Mean Platelet Volume 8.2 fl (7.4-10.4); Monocytes # 0.5 K/mm3 (0.1-1.0); Monocytes % 4.9 % (1.7-9.3); Neutrophils # 6.6 K/mm3 (1.8-7.8); Neutrophils % 69.3 % (37.0-80.0); Platelet Count 265 K/mm3 (142-424); Red Cell Distribution Width 12.9 % (11.5-17.5); White Blood Count 9.5 K/mm3 (4.8-10.8)
[2021-12-19 12:03] LABS: Chloride 102 mmol/L (98-107)
[2021-12-19 12:04] LABS: Potassium 4.5 mmoL/L (3.5-5.1); Sodium 141 mmol/L (136-145)
[2021-12-19 12:06] LABS: Alanine Aminotransferase 15 U/L (12-78); Alkaline Phosphatase 55 U/L (38-126); Aspartate Amino Transferase 24 U/L (14-36); Blood Urea Nitrogen 11 mg/dl (7-17); Creatinine Clearance Estimated 136 mL/min (50-200); Estimated Glomerular Filt Rate 109 ml/min (>60); GFR (African American) 132 ML/MIN (>60)
[2021-12-19 12:07] LABS: Albumin Level 4.5 g/dl (3.5-5.0); Albumin/Globulin Ratio 1.9 (1.1-1.8); Anion Gap 13.5 mEq/L (5-15); Bilirubin,Total < 0.1 mg/dl (0.2-1.3); Calcium 9.4 mg/dl (8.4-10.2); Carbon Dioxide 30 mmol/L (22.0-30.0); Globulin 2.4 g/dL (1.3-3.2); Glucose 109 mg/dl (74-100); Total Protein,Serum 6.9 g/dl (6.3-8.2)
[2021-12-19 12:30] VITALS: BP 126/68; PULSE 109; RESP 18; O2SAT 100
--- NOTE | 2021-12-19 12:35 | HMH.EDGENADL ---
Discharge Plan Disposition Patient Disposition: Home, Self-Care Condition: Good Prescriptions Prescriptions: No Action isosorbide mononitrate 30 mg tablet extended release 24 hr 30 mg PO DAILY Qty: 30 2RF buprenorphine-naloxone 8-2 mg tablet, sublingual 2 tab sublingual Label Comments: DISSOLVE 2 TABLETS UNDER THE TONGUE EVERY DAY ergocalciferol (vitamin D2) 1,250 mcg (50,000 unit) capsule 1,250 mcg PO WEEKLY Qty: 14 3RF cholecalciferol (vitamin D3) 25 mcg (1,000 unit) capsule 25 mcg PO DAILY Qty: 30 2RF cyanocobalamin (vitamin B-12) 5,000 mcg tablet,disintegrating 5,000 mcg PO DAILY Qty: 30 0RF fluoxetine [Prozac] 40 mg capsule 40 mg PO DAILY Qty: 30 1RF phentermine [Adipex-P] 37.5 mg tablet 37.5 mg PO DAILY Qty: 30 0RF Rx Instructions: must administer 30 minutes before or 1-2 hours after breakfast Referrals Follow up/Referrals: David Be MD [Staff Physician] - See instructions Khalida Moran PA [Primary Care Provider] - See instructions Activity Restrictions/Add. Instructions Additional Instructions/Restrictions: Avoid ibuprofen, aspirin, Aleve, and other anti-inflammatories. Follow-up with general surgeon, Dr. Be, or primary care provider to arrange colonoscopy. Return to the emergency department if worsening bleeding, abdominal pain, fever, vomiting, or vomiting of blood. Clinical Impressions Clinical Impression: Bright red rectal bleeding Instructions Patient Instructions: DI for Rectal Bleeding Discharge ED Provider: Julian Chew General Adult HPI General Chief complaint: GI Bleed Stated complaint: GI Bleed Time Seen by Provider: 12/19/21 12:20 Mode of Arrival: Ambulatory Source of Information: Patient Limitations: No Limitations Description of Symptoms (Recalled from ER Triage Doc. by RN): Pt states that she has had bright red blood in her stool x1 month. C/O intermittent left side pain. Reports sister of colon cancer a couple months ago. History of Present Illness HPI narrative: 1 month history of intermittent bright red rectal bleeding. The bleeding is to the extent that she will turn the toilet water red and wiped away clots with toilet paper. Initially occurred for about 2 weeks but then seemed to resolve. Over the past couple of days it has come back. She has had 3 episodes over the past 24 hours. She states that she has a prior history of hemorrhoids, but has never bled this heavily. She had a colonoscopy at the age of 16. She has some slight pain in her left lateral flank, has a burning discomfort in her rectal area. No vomiting, no hematemesis. She is not on any blood thinners. She takes ibuprofen about 3 times a week. Related Data Home Medications Medication Instructions Recorded Confirmed buprenorphine 8 mg-naloxone 2 mg 2 tab sublingual 11/17/21 11/17/21 sublingual tablet Previous Rx's Medication Instructions Recorded isosorbide mononitrate 30 mg 30 mg PO DAILY #30 tabs 08/26/21 tablet,extended release 24 hr cholecalciferol (vitamin D3) 25 25 mcg PO DAILY #30 caps 08/30/21 mcg (1,000 unit) capsule cyanocobalamin (vitamin B-12) 5,000 mcg PO DAILY #30 tabs 08/30/21 5,000 mcg disintegrating tablet ergocalciferol (vitamin D2) 1,250 1,250 mcg PO WEEKLY #14 caps 08/30/21 mcg (50,000 unit) capsule fluoxetine 40 mg capsule (Prozac) 40 mg PO DAILY #30 caps 09/14/21 phentermine 37.5 mg tablet 37.5 mg PO DAILY #30 tabs 12/15/21 (Adipex-P) Allergies Allergy/AdvReac Type Severity Reaction Status Date / Time codeine [CODEINE] Allergy Unknown Verified 11/17/21 14:35 Penicillins [PENICILLINS] Allergy Unknown NA-NAUSEA/V Verified 11/17/21 14:35 OMITING Sulfa (Sulfonamide Allergy Unknown NA-NAUSEA/V Verified 11/17/21 14:35 Antibiotics) OMITING [SULFA (SULFONAMIDE ANTIBIOTICS)] PFSH PFSH Social History Smoking Status: Current every day smoker tobacco type: cigar
[2021-12-19 12:55] VITALS: BP 124/76; PULSE 76; RESP 16; TEMP 36.7; O2SAT 98
[2021-12-19 13:09] LABS: Occult Blood,Stool Positive (Negative)
== END 2021-12-19 12:55 | disposition home or self-care (01) ==
PROVIDERS: Emergency Provider Emergency Medicine; PCP Physician Assistant
DX: K62.5 Hemorrhage of anus and rectum (principal); Z79.899 Other long term (current) drug therapy; Z88.0 Allergy status to penicillin; Z88.2 Allergy status to sulfonamides; Z88.6 Allergy status to analgesic agent
CPT/HCPCS: 80053; 82272; 85025; 99212; G0328; G0463

== ENCOUNTER → 2021-12-22 15:50 | Outpatient (CLI) | payer OTHER, SELFPAY | PROVIDERS: PCP Physician Assistant; Visit Provider Physician Assistant | DX: R30.0 Dysuria (principal) | CPT/HCPCS: 87086 ==

== ENCOUNTER → 2022-01-03 11:48 | Outpatient (CLI) | payer OTHER, SELFPAY | PROVIDERS: PCP Physician Assistant; Visit Provider Internal Medicine Gastroenterology | DX: Z01.818 Encounter for other preprocedural examination (principal) ==

== ENCOUNTER → 2022-01-06 08:17 | Outpatient (CLI) | payer OTHER, SELFPAY ==
--- NOTE | 2022-01-06 08:18 | MM_ITS ---
PROCEDURE INFORMATION: Exam: MG Bilateral Screening 3D Mammography Exam date and time: 01/06/2022 8:13 AM Age: 41 years old Clinical indication: Screening. Concern for left breast pain. Her maternal grandmother had breast cancer at age 70, and a maternal 1st cousin at age 25. TECHNIQUE: Imaging protocol: Bilateral Screening tomosynthesis and 2D mammography including computer-aided detection (CAD) when performed. COMPARISON: 1. MG MM DIG MAMM DX UNILAT LT CAD 10/31/2018 1:23 PM 2. MG SCBI MM Dig screening mamm BI w/CAD 01/24/2018 10:25 AM 3. US BREAST LT COMPLETE 10/31/2018 2:08 PM 4. MG SCBI MM Dig screening mamm BI w/CAD 01/24/2018 10:25 AM FINDINGS: MAMMOGRAPHY: Breast composition: The breasts are heterogeneously dense, which may obscure small masses. Mass: None. Architectural distortion: None. Calcifications: No suspicious calcifications. Asymmetric density: Stable appearing focal asymmetries in the upper inner and upper outer left breast, posterior 3rd, approximately 2-3 and 3-4 cm respectively, with no significant change since 01/24/2018 (and evaluated with diagnostic mammography and ultrasound in in 10/31/2018) Skin thickening: None. Axillary adenopathy: None. IMPRESSION: See comment Stable prominent focal asymmetries in the left upper inner and upper outer quadrants, clinical correlation to this quadrant is recommended and if negative clinically, annual screening mammogram is recommended. Note history of left breast pain, if focal or clinical concern, sonography can be added. ASSESSMENT: BI-RADS Category 2: Benign
== END ==
PROVIDERS: PCP Physician Assistant; Visit Provider Student in an Organized Health Care Education/Training Program
DX: Z12.31 Encounter for screening mammogram for malignant neoplasm of breast (principal)
CPT/HCPCS: 77063; 77067

== ENCOUNTER 2022-01-06 11:00 | Day surgery (SDC) | payer OTHER, SELFPAY ==
[2021-12-30 10:33] VITALS: BMI 30.7
[2022-01-06 12:04] VITALS: BP 127/76; PULSE 71; RESP 16; TEMP 36.6; O2SAT 100
[2022-01-06 12:27] LABS: Urine Pregnancy, HCG Qual. Negative (Negative)
[2022-01-06 14:08] VITALS: O2SAT 97
--- NOTE | 2022-01-06 14:28 | HMH.SCOPE ---
Procedure: Date: 01/06/22 Patient Date of :: 1980 Procedure Performed:: Diagnostic colonoscopy Indications:: Rectal bleeding Performing Provider:: Willow Jacobs MD Referring Provider:: Khalida Moran Sedation:: Propofol Procedure:: After placing the patient in the left lateral decubitus position, the colonoscopy was gently inserted into the rectum and under direct visualization advanced to the cecum which was identified by transillumination in the right lower quadrant, identification of the ileocecal valve, appendiceal orifice, and cecal strap. Color, texture, mucosa, and anatomy of the colon were carefully examined with the scope. Findings:: Anal canal: normal, prolapsing hemorrhoids were noted, no active bleeding noted Rectum: normal Sigmoid colon: normal without polyps or inflammatory changes Descending colon: normal without polyps or inflammatory changes Splenic flexure: normal Transverse colon: normal without polyps or inflammatory changes Hepatic flexure: normal Ascending colon: normal without polyps or inflammatory changes Cecum: normal Terminal ileum: not visualized Impression: Prolapsing hemorrhoids otherwise Normal colonoscopy examination Recommendations:: Routine follow up examination in about TEN years or so, sooner if clinically indicated. Complications:: None Estimated blood obtained (mL): 0
[2022-01-06 14:33] VITALS: BP 84/54; PULSE 72; RESP 18; TEMP 36.3; O2SAT 98
[2022-01-06 14:43] VITALS: BP 108/65; PULSE 75; RESP 18; O2SAT 98
[2022-01-06 14:50] VITALS: BP 119/68; PULSE 76; RESP 18; O2SAT 99
--- NOTE | 2022-01-06 14:53 | EXP.ANES.CKL ---
[facility] Medical History Anxiety Surgical History History of cholecystectomy Family History Grandmother Cancer Mother Diabetes Grandfather Heart attack Stroke Other Coronary artery disease Social History Smoking Status: Current every day smoker tobacco type: cigarettes packs per day: 1 alcohol intake: never substance use type: former substance user and opiates current occupational status: employed Travel in the last 8 weeks: None household members: significant other and children housing: apartment number of children: 2 [facility] [place] Anesthesia Checklist Patient Identification Patient Identification: Arm Band and Family Structural Data Admitted From: Direct Admit Planned Operative Procedure/s: colonoscopy Consent for Planned Operative Procedure(s) Verified: Yes Verified Documents: Surgical Consent NPO Status Verified Time NPO: 00:00 Additional verifications Patient : No Anesthesia Reactions: No Hx Blood Transfusions: No Blood Transfusion Reaction: No Cephalosporin Allergy: No Previous Colonoscopy: No Airway Assessment C-Spine Mobility Assessed: Yes TMJ Mobility Assessed: Yes Dentition: Partials Neurological Assessment Level of Consciousness: Awake, Alert, Appropriate and Follows Commands Hx Seizures: No Numbness or tingling in extremities: No Genitourinary Assessment Voided spinner continuous to O.R.: Yes Anesthesia Plan Anesthesia Risk discussed: Yes ASA Class: II Anesthesia Type: MAC
== END 2022-01-06 14:50 | disposition home or self-care (01) ==
PROVIDERS: PCP Physician Assistant; Visit Provider Internal Medicine Gastroenterology
PROC: 0DJD8ZZ Inspection of Lower Intestinal Tract, Via Natural or Artificial Opening Endoscopic (ICD-10-PCS; CPT 45378; principal; 2022-01-06 12:30)
DX: R10.9 Unspecified abdominal pain (principal); K62.5 Hemorrhage of anus and rectum; Z79.899 Other long term (current) drug therapy; Z72.0 Tobacco use
CPT/HCPCS: 45378; 81025

== ENCOUNTER 2022-02-20 23:16 | Emergency (ER) | payer OTHER, SELFPAY ==
[2022-02-20 23:17] VITALS: BP 144/82; PULSE 81; RESP 18; TEMP 37.2; O2SAT 97; BMI 30.4
[2022-02-21 00:16] LABS: Basophils # 0.1 K/mm3 (0-0.2); Basophils % 0.6 % (0.1-2.0); Eosinophils # 0.3 K/mm3 (0.0-0.4); Hematocrit 37.7 % (37.0-47.0); Hemoglobin 11.9 g/dL (12.2-16.2); Lymphocytes # 2.3 K/mm3 (0.7-4.5); Mean Corpuscular HGB Conc 31.5 g/dL (31.8-35.4); Mean Corpuscular Hemoglobin 30.4 pg (27.0-31.2); Mean Corpuscular Volume 96.5 fl (81-99); Mean Platelet Volume 8.5 fl (7.4-10.4); Monocytes # 0.6 K/mm3 (0.1-1.0); Monocytes % 4.9 % (1.7-9.3); Neutrophils # 9.6 K/mm3 (1.8-7.8); Neutrophils % 74.5 % (37.0-80.0); Platelet Count 299 K/mm3 (142-424); Red Blood Count 3.91 M/mm3 (4.20-5.40); White Blood Count 12.9 K/mm3 (4.8-10.8)
--- NOTE | 2022-02-21 00:51 | HMH.EDDENT ---
Discharge Plan Disposition Patient Disposition: Home, Self-Care Prescriptions Prescriptions: New cephalexin [cephalexin] 500 mg capsule 500 mg PO TID Qty: 30 0RF ketorolac 10 mg tablet 10 mg PO TID 3 Days Qty: 9 0RF No Action buprenorphine-naloxone 8-2 mg tablet, sublingual 2 tab sublingual DAILY Label Comments: DISSOLVE 2 TABLETS UNDER THE TONGUE EVERY DAY naloxone 4 mg/actuation spray,non-aerosol 1 spray intranasal ONCE PRN (Reason: overdose) fluoxetine [Prozac] 40 mg capsule 40 mg PO DAILY Qty: 30 1RF fluoxetine [Prozac] 20 mg capsule 20 mg PO DAILY Qty: 30 1RF Rx Instructions: take daily with the 40mg capsules; total dose is 60mg daily phentermine [Adipex-P] 37.5 mg tablet 37.5 mg PO DAILY Qty: 30 0RF Rx Instructions: must administer 30 minutes before or 1-2 hours after breakfast Referrals Follow up/Referrals: Khalida Moran PA [Primary Care Provider] - See instructions Clinical Impressions Clinical Impression: Pain due to dental caries, Infected dental caries Instructions Patient Instructions: DI for Dental Pain Discharge ED Provider: [facility] HPI General Chief complaint: Dental/Oral Stated complaint: Right side facial abcess Time Seen by Provider: 02/21/22 00:51 Mode of Arrival: Ambulatory Source of Information: Patient Limitations: No Limitations Description of Symptoms (Recalled from ER Triage Doc. by RN): pt c/o rt lower dental pain with rt jaw swelling that started today History of Present Illness HPI Narrative: has known dental caries and has swollen jaw with pain Onset (ago): day(s) Duration: intermittent Severity: moderate Associated symptoms: gum swelling Related Data Home Medications Medication Instructions Recorded Confirmed buprenorphine 8 mg-naloxone 2 mg 2 tab sublingual DAILY addiction 11/17/21 01/11/22 sublingual tablet naloxone 4 mg/actuation nasal spray 1 spray intranasal ONCE PRN 12/22/21 01/11/22 overdose Previous Rx's Medication Instructions Recorded fluoxetine 20 mg capsule (Prozac) 20 mg PO DAILY #30 caps 01/11/22 fluoxetine 40 mg capsule (Prozac) 40 mg PO DAILY Anxiety #30 caps 01/11/22 phentermine 37.5 mg tablet 37.5 mg PO DAILY Weight loss #30 01/12/22 (Adipex-P) tabs cephalexin 500 mg capsule 500 mg PO TID #30 caps 02/21/22 ketorolac 10 mg tablet 10 mg PO TID 3 days #9 tabs 02/21/22 Allergies Allergy/AdvReac Type Severity Reaction Status Date / Time codeine [CODEINE] Allergy Unknown Verified 01/11/22 13:35 Penicillins [PENICILLINS] Allergy Unknown NA-NAUSEA/V Verified 01/11/22 13:35 OMITING Sulfa (Sulfonamide Allergy Unknown NA-NAUSEA/V Verified 01/11/22 13:35 Antibiotics) OMITING [SULFA (SULFONAMIDE ANTIBIOTICS)] [facility] Medical History (Updated 02/21/22 @ 01:15 by Garfield Dasilva MD) Anxiety Drug addiction in remission Generalized anxiety disorder Major depressive disorder Surgical History History of cholecystectomy Family History Diabetes Mother Coronary artery disease Heart attack Grandfather Cancer Grandmother Stroke Grandfather Social History Smoking Status: Current every day smoker tobacco type: cigarettes packs per day: 1 alcohol intake: never substance use type: former substance user and opiates current occupational status: employed Travel in the last 8 weeks: None household members: significant other and children housing: apartment number of children: 2 ROS Obtained: Yes All systems reviewed & no additional complaints except as documented Physical Exam General General appearance: alert Head Head exam: normocephalic Eye Eye exam: Present PERRL and EOMI ENT ENT exam: Present other (dental caries with gum swelli
[2022-02-21 01:15] VITALS: BP 144/82; PULSE 80; RESP 18; TEMP 36.6; O2SAT 99
[2022-02-21 01:31] LABS: Chloride 103 mmol/L (98-107); Potassium 3.6 mmoL/L (3.5-5.1); Sodium 140 mmol/L (136-145)
[2022-02-21 01:34] LABS: Alanine Aminotransferase 20 U/L (12-78); Albumin Level 4.4 g/dl (3.5-5.0); Albumin/Globulin Ratio 1.6 (1.1-1.8); Alkaline Phosphatase 57 U/L (38-126); Anion Gap 12.6 mEq/L (5-15); Aspartate Amino Transferase 34 U/L (14-36); Blood Urea Nitrogen 11 mg/dl (7-17); Calcium 9.8 mg/dl (8.4-10.2); Carbon Dioxide 28 mmol/L (22.0-30.0); Creatinine Clearance Estimated 116 mL/min (50-200); Estimated Glomerular Filt Rate 91 ml/min (>60); GFR (African American) 111 ML/MIN (>60); Globulin 2.8 g/dL (1.3-3.2); Glucose 88 mg/dl (74-100); Lactic Acid 0.7 mmol/L (0.7-2.1); Total Protein,Serum 7.2 g/dl (6.3-8.2)
[2022-02-21 01:37] LABS: Bilirubin,Total 0.1 mg/dl (0.2-1.3)
== END 2022-02-21 01:19 | disposition home or self-care (01) ==
PROVIDERS: Emergency Provider Emergency Medicine; PCP Physician Assistant
DX: L02.01 Cutaneous abscess of face (principal); R68.84 Jaw pain; K02.9 Dental caries, unspecified; F32.9 Major depressive disorder, single episode, unspecified; F41.1 Generalized anxiety disorder; Z79.52 Long term (current) use of systemic steroids; Z79.899 Other long term (current) drug therapy; Z88.0 Allergy status to penicillin; Z88.2 Allergy status to sulfonamides; Z88.5 Allergy status to narcotic agent; Z82.49 Family history of ischemic heart disease and other diseases of the circulatory system; Z80.9 Family history of malignant neoplasm, unspecified; Z83.3 Family history of diabetes mellitus
CPT/HCPCS: 80053; 83605; 85025; 87040; 96361; 96374; 96375; 99284; J0696; J2405

== ENCOUNTER → 2022-06-02 10:15 | Outpatient (CLI) | payer OTHER, SELFPAY ==
[2022-06-02 20:11] LABS: Basophils # 0.1 K/mm3 (0-0.2); Basophils % 1.2 % (0.1-2.0); Eosinophils # 0.2 K/mm3 (0.0-0.4); Eosinophils % 2.6 % (0.1-12.0); Hematocrit 39.1 % (37.0-47.0); Hemoglobin 12.9 g/dL (12.2-16.2); Lymphocytes # 2.5 K/mm3 (0.7-4.5); Lymphocytes % 28.2 % (10-50); Mean Corpuscular Hemoglobin 30.2 pg (27.0-31.2); Mean Corpuscular Volume 91.4 fl (81-99); Mean Platelet Volume 9.1 fl (7.4-10.4); Monocytes # 0.4 K/mm3 (0.1-1.0); Monocytes % 4.4 % (1.7-9.3); Neutrophils # 5.8 K/mm3 (1.8-7.8); Neutrophils % 64.7 % (37.0-80.0); Platelet Count 286 K/mm3 (142-424); Red Blood Count 4.28 M/mm3 (4.20-5.40); Red Cell Distribution Width 14.1 % (11.5-17.5); White Blood Count 8.9 K/mm3 (4.8-10.8)
[2022-06-02 20:20] LABS: Alanine Aminotransferase 24 U/L (12-78); Albumin Level 4.5 g/dl (3.5-5.0); Albumin/Globulin Ratio 1.8 (1.1-1.8); Alkaline Phosphatase 53 U/L (38-126); Aspartate Amino Transferase 34 U/L (14-36); Bilirubin,Total 0.4 mg/dl (0.2-1.3); Blood Urea Nitrogen 9 mg/dl (7-17); Calcium 9.2 mg/dl (8.4-10.2); Carbon Dioxide 29 mmol/L (22.0-30.0); Cholesterol 174 mg/dl (140-200); Estimated Glomerular Filt Rate 109 ml/min (>60); GFR (African American) 132 ML/MIN (>60); Globulin 2.5 g/dL (1.3-3.2); Glucose 90 mg/dl (74-100); HDL Cholesterol 43 mg/dl (40-60); Triglycerides 208 mg/dl (30-150); VLDL Cholesterol 42 mg/dL (0-40)
[2022-06-02 20:31] LABS: C-Reactive Protein 1.7 mg/L (0-4)
[2022-06-02 20:51] LABS: Erythrocyte Sedimentation Rate 13 mm/hr (0-20); Thyroid Stimulating Hormone 2.11 uIU/mL (0.465-4.68)
[2022-06-02 21:10] LABS: Vitamin B12 421 pg/mL (239-931)
[2022-06-02 21:51] LABS: Chloride 101 mmol/L (98-107)
[2022-06-02 21:52] LABS: Sodium 137 mmol/L (136-145)
[2022-06-04 08:40] LABS: RA Latex Turbid. <10.0 IU/mL (<14.0)
[2022-06-04 14:08] LABS: Anti-Cyclic Citrullinated Pept 3 units (0-19)
[2022-06-04 16:10] LABS: Anti-Centromere B Antibodies <0.2 AI (0.0-0.9); Anti-DNA (DS) Ab Qn 1 IU/mL (0-9); Anti-Jo-1 <0.2 AI (0.0-0.9); Anti-Smith Antibody <0.2 AI (0.0-0.9); Antichromatin Antibodies <0.2 AI (0.0-0.9); Antiscleroderma-70 Antibodies <0.2 AI (0.0-0.9); RNP Antibodies <0.2 AI (0.0-0.9); Sjogren's Anti-SS-A <0.2 AI (0.0-0.9); Sjogren's Anti-SS-B <0.2 AI (0.0-0.9)
== END ==
PROVIDERS: PCP Physician Assistant; Visit Provider Physician Assistant
DX: M25.50 Pain in unspecified joint (principal); N39.0 Urinary tract infection, site not specified; B96.29 Other Escherichia coli [E. coli] as the cause of diseases classified elsewhere
CPT/HCPCS: 80053; 80061; 82607; 84443; 85025; 85651; 86140; 86200; 86225; 86235; 86431; 87086; 87088; 87186

== ENCOUNTER 2023-05-31 18:26 | Outpatient (CLI) | payer OTHER, SELFPAY ==
[2023-05-31 19:09] LABS: Basophils # 0.1 K/mm3 (0-0.2); Basophils % 0.9 % (0.1-2.0); Eosinophils # 0.2 K/mm3 (0.0-0.4); Eosinophils % 3.6 % (0.1-12.0); Hematocrit 37.1 % (37.0-47.0); Hemoglobin 12.1 g/dL (12.2-16.2); Lymphocytes # 2.1 K/mm3 (0.7-4.5); Lymphocytes % 34.4 % (10-50); Mean Corpuscular HGB Conc 32.5 g/dL (31.8-35.4); Mean Corpuscular Hemoglobin 30.7 pg (27.0-31.2); Mean Corpuscular Volume 94.3 fl (81-99); Mean Platelet Volume 8.5 fl (7.4-10.4); Monocytes # 0.4 K/mm3 (0.1-1.0); Monocytes % 5.8 % (1.7-9.3); Neutrophils # 3.3 K/mm3 (1.8-7.8); Neutrophils % 55.3 % (37.0-80.0); Platelet Count 237 K/mm3 (142-424); Red Blood Count 3.94 M/mm3 (4.20-5.40); Red Cell Distribution Width 12.8 % (11.5-17.5)
[2023-05-31 19:36] LABS: Alanine Aminotransferase 20 U/L (12-78); Albumin Level 4.2 g/dl (3.5-5.0); Albumin/Globulin Ratio 1.8 (1.1-1.8); Alkaline Phosphatase 49 U/L (38-126); Anion Gap 11.1 mEq/L (5-15); Aspartate Amino Transferase 26 U/L (14-36); Bilirubin,Total 0.3 mg/dl (0.2-1.3); Blood Urea Nitrogen 9 mg/dl (7-17); Calcium 9.1 mg/dl (8.4-10.2); Carbon Dioxide 28 mmol/L (22.0-30.0); Chloride 104 mmol/L (98-107); Chol/HDL Ratio 4.8 (1-3.5); Cholesterol 182 mg/dl (140-200); Estimated Glomerular Filt Rate 109 ml/min (>60); GFR (African American) 131 ML/MIN (>60); Globulin 2.3 g/dL (1.3-3.2); Glucose 84 mg/dl (74-100); HDL Cholesterol 38 mg/dl (40-60); Potassium 4.1 mmoL/L (3.5-5.1); Sodium 139 mmol/L (136-145); Total Protein,Serum 6.5 g/dl (6.3-8.2); Triglycerides 207 mg/dl (30-150); VLDL Cholesterol 41 mg/dL (0-40)
[2023-05-31 19:47] LABS: Direct LDL Cholesterol 92.06 mg/dL (100-129)
[2023-05-31 20:08] LABS: Thyroid Stimulating Hormone 1.44 uIU/mL (0.465-4.68)
== END 2023-05-31 23:59 ==
LOC: LAB.DROPOF 18:26
PROVIDERS: PCP Family Medicine; Visit Provider Family Medicine
DX: K64.8 Other hemorrhoids (principal); F32.9 Major depressive disorder, single episode, unspecified; F19.21 Other psychoactive substance dependence, in remission; F17.210 Nicotine dependence, cigarettes, uncomplicated; E66.9 Obesity, unspecified; Z68.32 Body mass index [BMI] 32.0-32.9, adult; Z79.899 Other long term (current) drug therapy
CPT/HCPCS: 80053; 80061; 83036; 84443; 85025

== ENCOUNTER 2023-06-02 08:10 | Emergency (ER) | payer OTHER, SELFPAY ==
--- NOTE | 2023-06-02 08:19 | XR_ITS ---
FINAL REPORT CLINICAL HISTORY: pain 2 and 3rd distal right finger pain COMPARISON: None FINDINGS: RIGHT HAND: 3 views of the right hand were obtained. There is no acute fracture or dislocation. Visualized joint spaces are normally aligned. Soft tissues are unremarkable. IMPRESSION: No acute bony abnormality. Reviewed, Interpreted and Dictated by David Maldonado III, MD Transcribed by Ratna Crawford Authenticated and [facility]
[2023-06-02 08:20] VITALS: BP 115/88; PULSE 87; RESP 18; TEMP 36.7; O2SAT 98; BMI 32.0
--- NOTE | 2023-06-02 08:29 | ED_ITS ---
Discharge Plan Disposition Patient Disposition: Home, Self-Care Condition: Good Prescriptions Prescriptions: New cephalexin 500 mg capsule 500 mg PO QID Qty: 40 0RF No Action naloxone 4 mg/actuation spray,non-aerosol 1 spray intranasal ONCE PRN (Reason: overdose) buprenorphine-naloxone 8-2 mg film 1 film sublingual DAILY fluoxetine [Prozac] 40 mg capsule 40 mg PO DAILY Qty: 30 1RF Referrals Follow up/Referrals: Khalida Moran PA [Primary Care Provider] - See instructions Activity Restrictions/Add. Instructions Additional Instructions/Restrictions: Keep the wounds clean and dry. Watch the wounds for signs of infection, such as redness, swelling, drainage, fever. etc. Take tylenol or ibuprofen for pain. Follow up with your regular doctor. GO TO THE ER FOR ANY WORSENING SYMPTOMS OR CONCERNS. Clinical Impressions Clinical Impression: Unspecified open wound of left index finger with damage to nail, initial encounter, Unspecified open wound of left middle finger with damage to nail, initial encounter Stand Alone Forms Stand Alone Forms: Work/School Release Instructions Patient Instructions: DI for Nail Bed Injury Discharge ED Provider: Edmund Murillo [facility] [place] HPI General Stated complaint: inj to right pointer finger Time Seen by Provider: 06/02/23 08:21 History of Present Illness Provider Complaint: She states that she was trying to pry a dresser drawer open this morning when she slipped and scratched the wood with her finger nails. She has wooden splinters beneath her rigth index and right middle finger nails. Related Data Home Medications Medication Instructions Recorded Confirmed naloxone 4 mg/actuation nasal spray 1 spray intranasal ONCE PRN 12/22/21 05/31/23 overdose buprenorphine 8 mg-naloxone 2 mg 1 film sublingual DAILY 05/31/23 06/02/23 sublingual film Previous Rx's Medication Instructions Recorded fluoxetine 40 mg capsule (Prozac) 40 mg PO DAILY #30 caps 01/26/23 cephalexin 500 mg capsule 500 mg PO QID #40 caps 06/02/23 Allergies Allergy/AdvReac Type Severity Reaction Status Date / Time codeine [CODEINE] Allergy Unknown Verified 06/02/23 08:31 Penicillins [PENICILLINS] Allergy Unknown NA-NAUSEA/V Verified 06/02/23 08:31 OMITING Sulfa (Sulfonamide Allergy Unknown NA-NAUSEA/V Verified 06/02/23 08:31 Antibiotics) OMITING [SULFA (SULFONAMIDE ANTIBIOTICS)] [facility] Disclaimer: The information contained in this section may have been updated after the patient was seen, as this information can be updated by other users. Medical History Generalized anxiety disorder Major depressive disorder Drug addiction in remission Anxiety Surgical History History of cholecystectomy Family History Grandmother Cancer Mother Diabetes Grandfather Heart attack Stroke Other Coronary artery disease Social History Smoking Status: Current every day smoker tobacco type: cigarettes packs per day: 1 alcohol intake: never substance use type: former substance user and opiates current occupational status: employed Travel in the last 8 weeks: None household members: significant other and children housing: apartment number of children: 2 ROS Obtained: Yes All systems reviewed & no additional complaints except as documented Constitutional Constitutional: Reports chills and Reports fever(s) Eyes Eyes: Denies eye discharge ENT Ears, Nose, Mouth, and Throat: Reports as per HPI Cardiovascular Cardiovascular: Denies chest pain Respiratory Respiratory: Denies chest congestion and Reports cough Gastrointestinal Gastrointestingal: Reports nausea; Denies abdominal pain, constipation, cramping, diarrhea or vomiting Musculoskeletal Musculoskeletal: Denies arthralgias Integumentary/Breasts Skin/Breast: Denies rash Neurologic Neurologic: Denies paresthesias Physical Exam General General appearance: alert and in no apparent distress Head Head exam: atraumatic, normocephalic and normal inspection Eye Eye exam: Present normal appearance, PERRL and EOMI ENT ENT exam: Present mucous membranes moist and normal external ear exam Expanded ENT Exam TM/Canal exam: Bilateral TM: erythema and bulging Nose exam: Absent sinus tenderness Mouth exam: Present normal external inspection; Absent drooling Teeth exam: Present normal inspection Throat exam: Present tonsillar erythema, tonsillomegaly and tonsillar exudate Neck Neck exam: Present normal inspection, full ROM and trachea midline; Absent tenderness, meningismus or lymphadenopathy Chest Chest inspection: Present normal inspection and symmetric chest wall rise; Absent tenderness Respiratory Respiratory exam: Present normal lung sounds bilaterally; Absent respiratory distress, wheezes, stridor or accessory muscle use Cardiovascular Cardiovascular exam: Present regular rate and normal rhythm; Absent systolic murmur or diastolic murmur Abdominal Exam Abdominal exam: Present soft and normal bowel sounds; Absent distention, tenderness, guarding, rebound or rigidity Extremities Exam Extremities exam: Present normal inspection and normal capillary refill; Absent calf tenderness Back Exam Back exam: Present normal inspection and full ROM; Absent tenderness, CVA tenderness (R) or CVA tenderness (L) Neurological Exam Neurological exam: Present alert, oriented X3 and CN II-XII intact Psychiatric Psychiatric exam: Present normal affect and normal mood Skin Skin exam: Present warm, dry, intact and normal color Medical Decision Making Medical Records Medical records reviewed: No I reviewed the patient's medical records. Dipehs Inquiry Pt receiving controlled substance: No Orders (Tests/Meds): ORDERS Category Date Time Status Hand XR right minimum 3 views [XR hand RT min 3V] Stat Exams 06/02/23 08:19 Ordered
[2023-06-02] MEDS: TET/DIPHTH/PERT-ADULT 0.5ML SYRINGE 0.5 ML IM (09:38)
[2023-06-02 09:46] VITALS: BP 115/88; PULSE 87; RESP 18; TEMP 36.7; O2SAT 98
== END 2023-06-02 09:46 | disposition home or self-care (01) ==
PROVIDERS: Emergency Provider Nurse Practitioner Family; PCP Physician Assistant
DX: F17.210 Nicotine dependence, cigarettes, uncomplicated; Z23 Encounter for immunization; W22.8XXA Striking against or struck by other objects, initial encounter; S61.300A Unspecified open wound of right index finger with damage to nail, initial encounter; S61.302A Unspecified open wound of right middle finger with damage to nail, initial encounter
CPT/HCPCS: 73130; 90471; 90715; 99212; 99214; G0463

== ENCOUNTER 2024-03-22 14:02 | Outpatient (CLI) | payer OTHER, SELFPAY ==
[2024-03-22 18:04] LABS: Basophils # 0.1 K/mm3 (0-0.2); Basophils % 0.8 % (0.1-2.0); Eosinophils # 0.2 K/mm3 (0.0-0.4); Eosinophils % 3.1 % (0.1-12.0); Hemoglobin 12.4 g/dL (12.2-16.2); Lymphocytes # 2.3 K/mm3 (0.7-4.5); Lymphocytes % 35.1 % (10-50); Mean Corpuscular HGB Conc 33.5 g/dL (31.8-35.4); Mean Corpuscular Hemoglobin 29.2 pg (27.0-31.2); Mean Corpuscular Volume 87.3 fl (81-99); Mean Platelet Volume 10.5 fl (7.4-10.4); Monocytes # 0.4 K/mm3 (0.1-1.0); Monocytes % 6.6 % (1.7-9.3); Neutrophils # 3.5 K/mm3 (1.8-7.8); Neutrophils % 53.9 % (37.0-80.0); Platelet Count 228 K/mm3 (142-424); Red Blood Count 4.24 M/mm3 (4.20-5.40); Red Cell Distribution Width 12.3 % (11.5-17.5); White Blood Count 6.5 K/mm3 (4.8-10.8)
[2024-03-22 19:43] LABS: 25-OH Vitamin D, Total 22.6 ng/mL (30-100)
[2024-03-22 20:40] LABS: Alanine Aminotransferase 25 U/L (12-78); Albumin Level 4.1 g/dl (3.5-5.0); Albumin/Globulin Ratio 1.9 (1.1-1.8); Alkaline Phosphatase 51 U/L (38-126); Anion Gap 12.5 mEq/L (5-15); Aspartate Amino Transferase 33 U/L (14-36); Bilirubin,Total 0.4 mg/dl (0.2-1.3); Blood Urea Nitrogen 9 mg/dl (7-17); Calcium 9.5 mg/dl (8.4-10.2); Carbon Dioxide 28 mmol/L (22.0-30.0); Chloride 104 mmol/L (98-107); Chol/HDL Ratio 4.6 (1-3.5); Cholesterol 178 mg/dl (140-200); Estimated Glomerular Filt Rate 90 ml/min (>60); GFR (African American) 109 ML/MIN (>60); Globulin 2.2 g/dL (1.3-3.2); Glucose 108 mg/dl (74-100); HDL Cholesterol 39 mg/dl (40-60); Potassium 4.5 mmoL/L (3.5-5.1); Sodium 140 mmol/L (136-145); Total Protein,Serum 6.3 g/dl (6.3-8.2); Triglycerides 297 mg/dl (30-150); VLDL Cholesterol 59 mg/dL (0-40)
[2024-03-22 21:10] LABS: Thyroid Stimulating Hormone 1.31 uIU/mL (0.465-4.68)
[2024-03-22 21:29] LABS: Vitamin B12 389 pg/mL (239-931)
[2024-03-24 08:13] LABS: Estradiol 18.3 pg/mL (.); Progesterone 0.8 ng/mL (.)
[2024-03-26 14:28] LABS: Estrogen 100 pg/mL (.)
== END 2024-03-22 23:59 | disposition home or self-care (01) ==
LOC: LAB.DROPOF 03-25 13:29
PROVIDERS: PCP Family Medicine; Visit Provider Family Medicine
DX: E55.9 Vitamin D deficiency, unspecified (principal); F41.1 Generalized anxiety disorder; M54.50 Low back pain, unspecified; N30.01 Acute cystitis with hematuria; R53.83 Other fatigue; E66.9 Obesity, unspecified; Z68.34 Body mass index [BMI] 34.0-34.9, adult
CPT/HCPCS: 80050; 80053; 80061; 82306; 82607; 82670; 82672; 84144; 84443; 85025; 87086

== ENCOUNTER 2024-06-19 19:54 | Outpatient (CLI) | payer OTHER, SELFPAY | END 2024-06-19 23:59 | disposition home or self-care (01) | LOC: LAB.DROPOF 19:56 | PROVIDERS: PCP Nurse Practitioner Family; Visit Provider Nurse Practitioner Family | DX: N30.01 Acute cystitis with hematuria (principal) | CPT/HCPCS: 87086 ==

== ENCOUNTER 2024-06-21 12:58 | Outpatient (CLI) | payer OTHER, SELFPAY ==
--- NOTE | 2024-06-21 13:05 | XR_ITS ---
FINAL REPORT CLINICAL HISTORY: fell yesterday twisted ankle COMPARISON: None none FINDINGS: LEFT ANKLE Three views demonstrate no acute fracture or dislocation. The visualized joint spaces are normally aligned. Mild soft tissue swelling is noted about the ankle. IMPRESSION: Mild soft tissue swelling with no acute bony abnormality. Reviewed, Interpreted and Dictated by Jared Luna MD Transcribed by Ayala Casey Authenticated and [facility]
--- NOTE | 2024-06-21 13:05 | XR_ITS ---
FINAL REPORT CLINICAL HISTORY: pain in ankle/foot COMPARISON: None FINDINGS: LEFT FOOT Three views of the left foot demonstrate no acute fracture or dislocation. The visualized joint spaces are normally aligned. The soft tissues are unremarkable. IMPRESSION: No acute bony abnormality. Reviewed, Interpreted and Dictated by Jared Luna MD Transcribed by Ayala Casey Authenticated and [facility]
== END 2024-06-21 23:59 | disposition home or self-care (01) ==
PROVIDERS: PCP Nurse Practitioner Family; Visit Provider Nurse Practitioner
DX: M25.572 Pain in left ankle and joints of left foot (principal); M79.672 Pain in left foot
CPT/HCPCS: 73610; 73630

== ENCOUNTER 2024-07-17 10:38 | Outpatient (CLI) | payer OTHER, SELFPAY ==
[2024-07-17 10:44] LABS: Hexagonal Phase Phospholipid ND; PTT-LA Incub Mix ND; PTT-LA Mix ND; dRVVT Confirm ND; dRVVT Mix ND
--- NOTE | 2024-07-17 10:46 | XR_ITS ---
FINAL REPORT CLINICAL HISTORY: Left knee pain COMPARISON: None FINDINGS: Four views of the left knee were obtained. There is no prior exam for comparison. There is no acute osseous abnormality of the left knee. The joint space is preserved. The soft tissues are normal. There is no joint effusion. IMPRESSION: No acute osseous abnormality of the left knee. Reviewed, Interpreted and Dictated by Gemini Russell MD Transcribed by Joan Upton Authenticated and [facility]
[2024-07-17 11:09] LABS: Basophils % 0.4 % (0.1-2.0); Eosinophils # 0.2 Kmm3 (0.0-0.4); Eosinophils % 1.4 % (0.1-12.0); Hematocrit 36.9 % (37.0-47.0); Hemoglobin 12.7 g/dL (12.2-16.2); Lymphocytes # 2.4 K/mm3 (0.7-4.5); Lymphocytes % 21.6 % (10-50); Mean Corpuscular HGB Conc 34.4 g/dL (31.8-35.4); Mean Corpuscular Hemoglobin 30.1 pg (27.0-31.2); Mean Corpuscular Volume 87.4 fl (81-99); Mean Platelet Volume 10.2 fl (7.4-10.4); Monocytes # 0.5 K/mm3 (0.1-1.0); Monocytes % 4.3 % (1.7-9.3); Neutrophils % 71.9 % (37.0-80.0); Nucleated Red Blood Cells # 0 10^3/uL; Nucleated Red Blood Cells % 0 %; Platelet Count 103 K/mm3 (142-424); Red Blood Count 4.22 M/mm3 (4.20-5.40); Red Cell Distribution Width 12.1 % (11.5-17.5); Red Cell Distribution Width-SD 38.8 fL; White Blood Count 11.2 K/mm3 (4.8-10.8)
[2024-07-17 11:39] LABS: Alanine Aminotransferase 16 U/L (12-78); Albumin Level 4.1 g/dl (3.5-5.0); Albumin/Globulin Ratio 1.5 (1.1-1.8); Alkaline Phosphatase 43 U/L (38-126); Anion Gap 10.4 mEq/L (5-15); Aspartate Amino Transferase 20 U/L (14-36); Bilirubin,Total 0.4 mg/dl (0.2-1.3); Blood Urea Nitrogen 10 mg/dl (7-17); Calcium 9.5 mg/dl (8.4-10.2); Carbon Dioxide 30 mmol/L (22.0-30.0); Chloride 106 mmol/L (98-107); Estimated Glomerular Filt Rate 78 ml/min (>60); GFR (African American) 94 ML/MIN (>60); Globulin 2.8 g/dL (1.3-3.2); Glucose 113 mg/dl (74-100); Potassium 4.4 mmoL/L (3.5-5.1); Sodium 142 mmol/L (136-145); Total Protein,Serum 6.9 g/dl (6.3-8.2); Uric Acid 5.4 mg/dl (2.5-6.2)
[2024-07-17 11:44] LABS: C-Reactive Protein 2.6 mg/L (0-4)
[2024-07-17 11:47] LABS: NT Pro Brain Natriuretic Pep. 183 pg/mL (0-125)
[2024-07-17 12:00] LABS: Erythrocyte Sedimentation Rate 6 mm/hr (0-20)
[2024-07-18 04:08] LABS: RA Latex Turbid. <10.0 IU/mL (<14.0)
[2024-07-18 08:17] LABS: Estradiol 21.3 pg/mL (.); LH 11.9 mIU/mL (.)
[2024-07-18 13:10] LABS: Anti-Centromere B Antibodies <0.2 AI (0.0-0.9); Anti-DNA (DS) Ab Qn 1 IU/mL (0-9); Anti-Jo-1 <0.2 AI (0.0-0.9); Anti-Smith Antibody <0.2 AI (0.0-0.9); Antichromatin Antibodies <0.2 AI (0.0-0.9); Antiscleroderma-70 Antibodies <0.2 AI (0.0-0.9); RNP Antibodies <0.2 AI (0.0-0.9); Sjogren's Anti-SS-A <0.2 AI (0.0-0.9); Sjogren's Anti-SS-B <0.2 AI (0.0-0.9)
[2024-07-19 04:19] LABS: Lupus Reflex Interpretation Comment: (.); PTT-LA 35.5 sec (0.0-43.5); dRVVT 46.1 sec (0.0-47.0)
== END 2024-07-17 23:59 | disposition home or self-care (01) ==
LOC: LAB 10:39
PROVIDERS: PCP Family Medicine; Visit Provider Family Medicine
DX: Z00.00 Encounter for general adult medical examination without abnormal findings (principal); M25.50 Pain in unspecified joint; E34.9 Endocrine disorder, unspecified; M25.562 Pain in left knee
CPT/HCPCS: 36415; 73564; 80053; 82670; 83002; 83880; 84550; 85025; 85613; 85651; 85732; 86140; 86225; 86235; 86431

== ENCOUNTER 2025-03-07 13:38 | Outpatient (CLI) | payer OTHER, SELFPAY ==
--- NOTE | 2025-03-07 13:40 | XR_ITS ---
FINAL REPORT CLINICAL HISTORY: thoracic back pain right side when breathing COMPARISON: 08/27/2018 FINDINGS: CHEST 2 VIEWS PA AND LATERAL The heart is normal in size. The mediastinum is unremarkable. The lungs are underinflated but clear. There is no pneumothorax. IMPRESSION: No acute process. Reviewed, Interpreted and Dictated by Jared Luna MD Transcribed by Silvia Johnson Authenticated and . [facility]
== END 2025-03-07 23:59 | disposition home or self-care (01) ==
LOC: RAD 13:39
PROVIDERS: PCP Family Medicine; Visit Provider Student in an Organized Health Care Education/Training Program
DX: M54.6 Pain in thoracic spine (principal)
CPT/HCPCS: 71046